=== PATIENT | female | born 1980 | race Caucasian/White ===

== ENCOUNTER 2017-10-04 21:31 | Emergency (ER) | payer BC ==
[~2017-10-04] VITALS: Ht 157.5 cm; Wt 105.0 kg
[2017-10-04 22:04] LABS: HEMOGLOBIN 13.2 G/DL (11.9-15.5); MCH 28.4 PG (29.0-34.0); MCHC 33.8 G/DL (30.0-36.0); MCV 84.1 FL (83-99); PLATELET COUNT 264 K/uL (156-360); RBC DIS.WIDTH-CV 13.5 % (11.8-14.6); RBC DIS.WIDTH-SD 41.5 % (39-53); RED BLOOD COUNT 4.64 M/uL (3.80-5.20); WHITE BLOOD COUNT 9.7 K/uL (4.1-10.2)
[2017-10-04 22:19] LABS: CHLORIDE 108 mEq/L (99-109); POTASSIUM 4.4 mEq/L (3.7-5.4); SODIUM 140 mEq/L (136-147)
[2017-10-04 22:20] LABS: GLUCOSE 105 mg/dL (70-99)
[2017-10-04 22:24] LABS: CREATININE 0.6 mg/dL (0.6-1.3); GFR ESTIMATE (CALCULATED) > 59 mL/min/
[2017-10-04 22:25] LABS: UREA NITROGEN (BUN) 11 mg/dL (9-23)
[2017-10-04 22:32] LABS: QUANTITATIVE HCG < 4.0 MIU/ML
[2017-10-04 23:00] VITALS: BP 133/76
[2017-10-04] MEDS ORDERED: XANAX0.25 MG PO (23:28)
== END 2017-10-04 23:44 | disposition home or self-care (01) ==
LOC: EME 21:31
PROVIDERS: Physician Assistant
DX: F41.9 Anxiety disorder, unspecified (principal); R03.0 Elevated blood-pressure reading, without diagnosis of hypertension; I44.0 Atrioventricular block, first degree; R94.31 Abnormal electrocardiogram [ECG] [EKG]
CPT/HCPCS: 80048; 84702; 85027; 93005; 99281; 99284